=== PATIENT | male | born 1975 | race Two or more races ===

== ENCOUNTER 2020-04-26 20:51 | Emergency (ER) | payer MEDICAID ==
[~2020-04-26] VITALS: Ht 175.3 cm; Wt 91.8 kg
[2020-04-26 21:38] VITALS: BP 164/90
== END 2020-04-26 21:39 ==
LOC: ER 20:52
DX: F15.10 Other stimulant abuse, uncomplicated (principal); Z02.89 Encounter for other administrative examinations
CPT/HCPCS: 99283

== ENCOUNTER 2021-02-14 15:44 | Emergency (ER) | payer MEDICAID ==
[~2021-02-14] VITALS: Ht 175.3 cm; Wt 82.5 kg
[2021-02-14 16:24] LABS: BASOPHILS % (AUTO) 0.6 % (0-1); EOSINOPHILS % (AUTO) 0.2 % (0-6); HEMATOCRIT 47.5 % (42.0-52.0); HEMOGLOBIN 15.9 g/dl (14.0-17.9); LYMPHOCYTES % (AUTO) 13.4 % (21-51); MEAN CORPUSCULAR HEMOGLOBIN 29.8 PG (27.0-31.0); MEAN CORPUSCULAR HGB CONC 33.4 g/dL (33.0-36.5); MEAN CORPUSCULAR VOLUME 89.3 FL (78-98); MONOCYTES # (AUTO) 0.9 X10'3 (0-0.9); MONOCYTES % (AUTO) 12.5 % (2-12); NEUTROPHILS # (AUTO) 5.4 X10'3 (1.8-7.7); NEUTROPHILS % (AUTO) 73.3 % (42-75); PLATELET COUNT 242 X10'3 (140-440); RED BLOOD COUNT 5.32 X10'6 (4.70-6.10); RED CELL DISTRIBUTION WIDTH 13.5 % (11.5-14.5); WHITE BLOOD COUNT 7.4 X10'3 (4.5-11.0)
[2021-02-14 16:25] LABS: CLARITY,URINE CLEAR (Clear); COLOR,URINE YELLOW (Yellow); GLUCOSE, URINE NEGATIVE (Neg); KETONES,URINE NEGATIVE (Neg); LEUKOCYTE ESTERASE ,URINE NEGATIVE (Neg); NITRITES, URINE NEGATIVE (Neg); OCCULT BLOOD,URINE TRACE-INTACT (Neg); PH,URINE 5.5 (4.8-8.0); PROTEIN,URINE NEGATIVE (Neg); UROBILINOGEN,URINE 0.2 E.U/dL (0.2-1.0)
[2021-02-14 16:34] LABS: UA COLLECTION TYPE CLN CATCH MIDSTREAM
[2021-02-14 16:35] LABS: HYALINE CASTS 0-3 /LPF (NEGATIVE); MUCUS STRANDS MODERATE /LPF (Neg); SQUAMOUS EPITHELIAL CELL,UR FEW /LPF (FEW)
[2021-02-14 16:36] LABS: BACTERIA,URINE FEW /HPF (Neg); RBC,URINE 0-2 /HPF (0-2); SPERM FEW /HPF (NEGATIVE); WBC,URINE 0-4 /HPF (0-4)
[2021-02-14 16:41] LABS: ALANINE AMINOTRANSFERASE 41 U/L (12-78); ALBUMIN 3.8 G/DL (3.4-5.0); ALBUMIN/GLOBULIN RATIO 0.9 (1.1-1.5); ALKALINE PHOSPHATASE 103 IU/L (46-116); ANION GAP 8 (8-16); ASPARTATE AMINO TRANSFERASE 39 U/L (10-37); BILIRUBIN,TOTAL 0.5 MG/DL (0.1-1.0); BLOOD UREA NITROGEN 9 MG/DL (7-18); BUN/CREATININE RATIO 10.3 (5.4-32.0); CALCIUM 8.6 MG/DL (8.5-10.1); CHLORIDE 100 MMOL/L (99-107); CREATININE 0.87 MG/DL (0.60-1.10); GLUCOSE 105 MG/DL (70-104); LIPASE 284 U/L (73-393); POTASSIUM 3.9 MMOL/L (3.5-5.1); SODIUM 136 MMOL/L (135-145); TOTAL CARBON DIOXIDE 28.1 MMOL/L (24-32); TOTAL PROTEIN 8.1 G/DL (6.4-8.2); eGFR > 90 ML/MIN
[2021-02-14] MEDS ORDERED: ondansetron 4mg rapidly disintigrating tab PO ONE (16:55)
[2021-02-14] MEDS ORDERED: ketorolac tromethamine 15mg/ml inj. IM ONE (17:10)
[2021-02-14 17:48] VITALS: BP 156/98
== END 2021-02-14 17:46 | disposition home or self-care (01) ==
LOC: ER 15:45
DX: R10.84 Generalized abdominal pain (principal); F15.90 Other stimulant use, unspecified, uncomplicated
CPT/HCPCS: 36415; 80053; 81001; 83690; 85025; 96372; 99283; J1885